=== PATIENT | female | born 1955 | race Caucasian/White ===

== ENCOUNTER 2017-04-01 05:45 | Observation (INO) | payer MEDICARE, OTHER ==
[~2017-04-01] VITALS: Ht 165.1 cm; Wt 58.6 kg
[2017-04-01] VITALS (12 sets, daily range): BP systolic 120–172; BP diastolic 67–93; PULSE 74–107; RESP 18–26; TEMP 97.6–98.3; O2SAT 90–99
[~2017-04-01 05:45] MED LIST: IBUP-232 PO
[2017-04-01] MEDS ORDERED: methylPREDNISolone SOD SUCC 125 MG/2 ML VIAL IV PUSH ONE ×2 (06:00→06:45)
[2017-04-01] MEDS ORDERED: SODIUM CHLORIDE 0.9% FLUSH 10 ML FLUSH IVF PRN (06:00)
--- NOTE | 2017-04-01 06:05 | PD ---
HPI Chief Complaint: shortness of breath Time Seen by Provider: 05:56 Travel History International Travel<30 days: No Contact w/Intl Traveler<30days: No Traveled to known affect area: No History of Present Illness HPI 61-year-old female presents to the emergency department by private transportation the care of family for evaluation of shortness of breath. Symptoms are worsened over the past couple days. Patient's had to sleep upright with worsening symptoms this morning. Patient has had cough productive of yellow sputum. Patient does have history of tobacco use. Patient denies fever or chills. No report of hemoptysis. Patient denies pleuritic chest pain. Patient does not report any lower extremity pain or swelling. No report of long distance travel protracted bedrest or surgical procedure. Patient does have history of hepatitis C does not report history of COPD emphysema CHF hypertension dyslipidemia diabetes or CAD. Patient states she was seen a partially one month ago and diagnosed with colitis and was treated with Cipro and Flagyl is currently not taking any antibiotics. Patient does not report exacerbating or alleviating factors. 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 ) Neurologic: No Psychiatric: Yes Reproductive: No Respiratory: No Sickle Cell Disease: No Thyroid Disease: No Menopausal: Yes Tubal Ligation: Yes Past Surgical History Abdominal Surgery: Yes (LIVER BX) Gynecologic Surgery: Yes (FOR CERVICAL CA, BONE BIOPSY, TUBAL ) Social History Alcohol Use: Yes (Socially) Tobacco Use: Yes (1/2 PPD) Substance Use: No Allergies-Medications (Allergen,Severity, Reaction): Coded Allergies: penicillin G (Verified Allergy, Intermediate, Rash, 04/01/17) tramadol (Unverified Allergy, Intermediate, VOMITING, 04/01/17) Patient states that she does not have an allergy to this medication Reported Meds & Prescriptions Reported Meds & Active Scripts Active Motrin (Ibuprofen) 600 Mg Tab 600 Mg PO TID Review of Systems Except as stated in HPI: all other systems reviewed are Neg General / Constitutional: No: Fever, Chills HENT: Positive: Congestion Cardiovascular: No: Chest Pain or Discomfort, Diaphoresis Respiratory: Positive: Cough, Shortness of Breath, Wheezing Gastrointestinal: No: Nausea, Vomiting, Diarrhea, Abdominal Pain Genitourinary: No: Flank Pain Musculoskeletal: No: Myalgias, Arthralgias, Edema, Pain Skin: No Rash Neurologic: No: Weakness Psychiatric: No: Anxiety Endocrine: No: Heat Intolerance Hematologic/Lymphatic: No: Easy Bruising Physical Exam Narrative GENERAL: Well-developed well-nourished thin female in no acute distress moderate respiratory distress room air O2 saturation upon arrival to ED stretcher 90% SKIN: Warm and dry. HEAD: Normocephalic. EYES: No scleral icterus. No injection or drainage. NECK: Supple, trachea midline. No JVD or lymphadenopathy. CARDIOVASCULAR: Regular rate and rhythm without murmurs, gallops, or rubs. RESPIRATORY: Breath sounds equal bilaterally bilaterally diminished with expiratory wheeze. No accessory muscle use. GASTROINTESTINAL: Abdomen soft, non-tender, nondistended. MUSCULOSKELETAL: No cyanosis, or edema. BACK: Nontender without obvious deformity. No CVA tenderness. Data Data Last Documented VS Vital Signs Date Time Temp Pulse Resp B/P (MAP) Pulse Ox O2 Delivery O2 Flow Rate FiO2 04/01/17 06:35 94 2.00 04/01/17 06:32 20 04/01/17 06:17 Nasal Cannula 04/01/17 05:50 98.3 74 152/78 (102) Orders Orders Complete Blood Count With Diff (04/01/17 05:56) Comprehensive Metabolic Panel (04/01/17 05:56) B-Type Natriuretic Peptide (04/01/17 05:56) Act Partial Throm Time (Ptt) (04/01/17 05:56) Prothrombin Time / Inr (Pt) (04/01/17 05:56) Magnesium (Mg) (04/01/17 05:56) Ckmb (Isoenzyme) Profile (04/01/17 05:56) Troponin I (04/01/17 05:56) Iv Access Insert/Monitor (04/01/17 05:56) Electrocardiogram (04/01/17 05:56) Ecg Monitoring (04/01/17 05:56) Oximetry (04/01/17 05:56) Oxygen Administration (04/01/17 05:56) Chest, Single Ap (04/01/17 05:56) Sodium Chloride 0.9% Flush (Ns Flush) (04/01/17 06:00) Methylprednisolone So Succ Inj (Solumedr (04/01/17 06:00) Albuterol-Ipratropium Neb (Duoneb Neb) (04/01/17 06:00) Blood Culture (04/01/17 05:56) Lactic Acid (04/01/17 05:56) Methylprednisolone So Succ Inj (Solumedr (04/01/17 06:45) Labs Laboratory Tests Test 04/01/17 06:04 White Blood Count 5.1 TH/MM3 Red Blood Count 4.08 MIL/MM3 Hemoglobin 13.9 GM/DL Hematocrit 40.4 % Mean Corpuscular Volume 98.9 FL Mean Corpuscular Hemoglobin 34.0 PG Mean Corpuscular Hemoglobin Concent 34.3 % Red Cell Distribution Width 13.6 % Platelet Count 51 TH/MM3 Mean Platelet Volume 8.6 FL Neutrophils (%) (Auto) 33.5 % Lymphocytes (%) (Auto) 42.3 % Monocytes (%) (Auto) 7.5 % Eosinophils (%) (Auto) 15.5 % Basophils (%) (Auto) 1.2 % Neutrophils # (Auto) 1.7 TH/MM3 Lymphocytes # (Auto) 2.1 TH/MM3 Monocytes # (Auto) 0.4 TH/MM3 Eosinophils # (Auto) 0.8 TH/MM3 Basophils # (Auto) 0.1 TH/MM3 CBC Comment AUTO DIFF Differential Comment AUTO DIFF CONFIRMED Platelet Estimate LOW Platelet Morphology Comment NORMAL Prothrombin Time 14.0 SEC Prothromb Time International Ratio 1.3 RATIO Activated Partial Thromboplast Time 28.0 SEC Blood Urea Nitrogen 8 MG/DL Creatinine 0.76 MG/DL Random Glucose 128 MG/DL Total Protein 8.3 GM/DL Albumin 3.9 GM/DL Calcium Level 8.8 MG/DL Magnesium Level 1.7 MG/DL Alkaline Phosphatase 152 U/L Aspartate Amino Transf (AST/SGOT) 185 U/L Alanine Aminotransferase (ALT/SGPT) 189 U/L Total Bilirubin 1.2 MG/DL Sodium Level 139 MEQ/L Potassium Level 3.4 MEQ/L Chloride Level 103 MEQ/L Carbon Dioxide Level 27.5 MEQ/L Anion Gap 9 MEQ/L Estimat Glomerular Filtration Rate 77 ML/MIN Lactic Acid Level 1.4 mmol/L Total Creatine Kinase 49 U/L Troponin I LESS THAN 0.02 NG/ML B-Type Natriuretic Peptide 26 PG/ML MDM Medical Decision Making Medical Screen Exam Complete: Yes Emergency Medical Condition: Yes Medical Record Reviewed: Yes Interpretation(s) EKG: Normal sinus rhythm rate [address] elevation or injury pattern or ectopy noted however artifact is present at baseline ck: 49, not elevated; BNP: 26, not elevated; troponin I: less than 0.02, not elevated Last Impressions Chest X-Ray 04/01/17 0556 Signed Impressions: Service Date/Time: Saturday, April 01, 2017 06:14 - CONCLUSION: No acute cardiopulmonary disease demonstrated. Ayush Cantrell MD CBC & BMP Diagram 04/01/17 06:04 Total Protein 8.3 H, Albumin 3.9, Calcium Level 8.8, Magnesium Level 1.7, Alkaline Phosphatase 152 H, Aspartate Amino Transf (AST/SGOT) 185 H, Alanine Aminotransferase (ALT/SGPT) 189 H, Total Bilirubin 1.2 H Vital Signs Date Time Temp Pulse Resp B/P (MAP) Pulse Ox O2 Delivery O2 Flow Rate FiO2 04/01/17 06:35 94 2.00 04/01/17 06:32 20 04/01/17 06:17 94 Nasal Cannula 2.00 04/01/17 06:07 96 Nasal Cannula 3.00 04/01/17 05:50 98.3 74 20 152/78 (102) 90 Differential Diagnosis COPD, emphysema, Pneumonia, PE, CHF, anemia, ACS Narrative Course Patient placed on cardiac monitors supplemental oxygen 2 L per minute nasal cannula and DuoNeb updrafts 3 ordered along with blood cultures and lactic acid Lung sounds improved after DuoNeb updrafts Patient has received Solu-Medrol 125 mg IV Chest x-ray reveals no lobar infiltrate effusion or vascular congestion or pneumothorax CBC is automated differential remarkable for 15.5% eosinophilia otherwise eyes are grossly normal range chemistries are grossly within normal limits except for elevated LFTs with history of hepatitis C and cardiac enzymes are found to be in normal range Patient taken off of supplemental oxygen and placed on room air for reassessment It is now 7:05 AM; with exertion patient desaturates to 89% on ra and becomes symptomatic ---will admit to OBS for updrafts/steroids and arrange for outpatient nebulizer bronchodilator therapy and steroids Physician Communication Physician Communication [facility] [place] obs Diagnosis Primary Impression: COPD with exacerbation Additional Impression: Eosinophilia Admitting Information Admitting Physician Requests: Observation Chaya Conner MD Apr 01, 2017 06:05
[2017-04-01] MEDS: RESP: ALBUTEROL 2.5 MG/IPRATROPIUM 0.5 MG NEB (SCH) INH ×5 (06:08→20:54)
[2017-04-01 06:23] LABS: AUTOMATED NEUTROPHIL # 1.7 TH/MM3 (1.8-7.7); BASOPHIL # 0.1 TH/MM3 (0-0.2); BASOPHIL % 1.2 % (0.0-2.0); EOSINOPHIL # 0.8 TH/MM3 (0-0.4); EOSINOPHIL % 15.5 % (0.0-4.0); HEMATOCRIT 40.4 % (35.0-46.0); LYMPH % 42.3 % (9.0-44.0); LYMPHOCYTE # 2.1 TH/MM3 (1.0-4.8); MEAN CELL VOLUME 98.9 FL (80.0-100.0); MEAN CORPUSCULAR HGB CONC 34.3 % (32.0-36.0); MONO % 7.5 % (0.0-8.0); NEUT % 33.5 % (16.0-70.0); PLATELET COUNT 51 TH/MM3 (150-450); RED BLOOD COUNT 4.08 MIL/MM3 (4.00-5.30); RED CELL DISTRIBUTION WIDTH 13.6 % (11.6-17.2); WHITE BLOOD COUNT 5.1 TH/MM3 (4.0-11.0)
[2017-04-01 06:24] LABS: HEMO FLAGS AUTO DIFF
--- NOTE | 2017-04-01 06:25 | RADRPT ---
EXAM DATE/TIME: 04/01/2017 06:14 [place] COMPARISON: No previous studies available for comparison. INDICATIONS : Shortness of breath for 2 days MEDICAL HISTORY : None. SURGICAL HISTORY : None. ENCOUNTER: Initial ACUITY: 2 days PAIN SCORE: 0/10 LOCATION: Bilateral chest FINDINGS: A single view of the chest demonstrates the lungs to be symmetrically aerated without evidence of mas s, infiltrate or effusion. The cardiomediastinal contours are unremarkable. Osseous structures are intact. CONCLUSION: No acute cardiopulmonary disease demonstrated. Ayush Cantrell MD on April 01, 2017 at 6:23 Board Certified Radiologist. This report was verified electronically.
[2017-04-01 06:32] LABS: CHLORIDE 103 MEQ/L (98-107); POTASSIUM 3.4 MEQ/L (3.5-5.1); SODIUM (NA) 139 MEQ/L (136-145)
[2017-04-01 06:36] LABS: ANION GAP 9 MEQ/L (5-15); BICARBONATE 27.5 MEQ/L (21.0-32.0); BLOOD UREA NITROGEN 8 MG/DL (7-18); MAGNESIUM 1.7 MG/DL (1.5-2.5)
[2017-04-01 06:37] LABS: INTERNATIONAL NORMALIZED RATIO 1.3 RATIO
[2017-04-01 06:39] LABS: ALT (GPT) 189 U/L (10-53); AST (GOT) 185 U/L (15-37); GLOMERULAR FILTRATION RATE 77 ML/MIN (>89)
[2017-04-01 06:40] LABS: TOTAL BILIRUBIN ADULT 1.2 MG/DL (0.2-1.0)
[2017-04-01 06:42] LABS: ALKALINE PHOSPHATASE 152 U/L (45-117)
[2017-04-01 06:54] LABS: PLATELET ESTIMATE SMEAR LOW (NORMAL); PLATELET MORPHOLOGY NORMAL (NORMAL); SCAN/DIFF AUTO DIFF CONFIRMED
[2017-04-01 07:02] LABS: CREATINE KINASE 49 U/L (26-192)
[2017-04-01] MEDS ORDERED: SODIUM CHLORIDE 0.9% FLUSH 10 ML FLUSH IV FLUSH PRN (08:00)
[2017-04-01] MEDS ORDERED: methylPREDNISolone SOD SUCC 125 MG/2 ML VIAL IV PUSH SCH (08:00)
[2017-04-01] MEDS ORDERED: RESP: ALBUTEROL 2.5 MG/IPRATROPIUM 0.5 MG NEB (PRN) NEB (08:30)
[2017-04-01] MEDS: LEVOFLOXACIN 750 MG PREMIX INJ 150 ML IV SCH (08:55)
[2017-04-01] MEDS: SODIUM CHLORIDE 0.9% FLUSH 10 ML FLUSH IV FLUSH SCH ×2 (09:00→20:19)
[2017-04-01] MEDS: HEPARIN SODIUM - SQ 10,000 UNITS/ML VIAL SQ SCH ×2 (09:00→20:18)
--- NOTE | 2017-04-01 11:25 | HHI.HP ---
[facility] Primary Care Physician Admission Diagnosis exac copd/emphysema; eosinophilia Diagnoses: (1) COPD with exacerbation Diagnosis: Principal (2) Hypoxia Diagnosis: Principal Chief Complaint: Shortness of breath Travel History International Travel<30 Days: No Contact w/Intl Traveler <30 Da: No Traveled to Known Affected Are: No History of Present Illness Written by Sánchez Mayers, acting as scribe for Dr. Vasquez on 04/01/17 at 11:18. 61-year-old female with known history of hepatitis C, chronic tobacco use, history of cervical cancer who presented to the hospital because of shortness of breath and dyspnea. Patient states her last 2 days she has been having worsening shortness of breath, dyspnea. States that the difficulty getting air in and out. It been progressively getting worse over the last couple days so she had her son bring her to the hospital for evaluation. She denies any fever, nausea, vomiting, chest pain, lightheadedness, dizziness. Patient states that is worse whenever she lays down or with movement. She has started with a cough on Tuesday with phlegm production. Patient does continue to smoke cigarettes on a daily basis. However because she cannot breathe today she threw her cigarettes away and states that she is now going to quit smoking. Patient had workup done emergency department with improvement of her respiratory status. However patient was found to have hypoxemia with O2 sats 89 %. Because of those reasons is recommended by the ER physician that patient be observed for further evaluation and management. Review of Systems Respiratory: COMPLAINS OF: Cough, Sputum production, Shortness of breath Cardiovascular: COMPLAINS OF: Dyspnea on Exertion Except as stated in HPI: all other systems reviewed are Neg Past Family Social History Past Medical History Hepatitis C from tattoo, received treatment for 6 months History cervical cancer Degenerative disc disease of her back Depression Past Surgical History Liver biopsy Cervical biopsy Tubal ligation Reported Medications Reported Meds & Active Scripts Active Motrin (Ibuprofen) 600 Mg Tab 600 Mg PO TID Allergies: Coded Allergies: penicillin G (Verified Allergy, Intermediate, Rash, 04/01/17) tramadol (Unverified Allergy, Intermediate, VOMITING, 04/01/17) Patient states that she does not have an allergy to this medication Family History Reviewed and unremarkable Social History Patient states that she quit smoking yesterday, patient has been smoking since she was in her 20s. She does drink alcohol occasionally. Denies any illicit drugs. Physical Exam Vital Signs Vital Signs Date Time Temp Pulse Resp B/P (MAP) Pulse Ox O2 Delivery O2 Flow Rate FiO2 04/01/17 11:03 04/01/17 10:22 93 04/01/17 09:53 98 22 134/90 (105) 95 Nasal Cannula 2.00 04/01/17 08:50 95 Nasal Cannula 2.00 04/01/17 07:37 98 26 99 Nasal Cannula 2.00 04/01/17 07:36 98.1 98 26 120/67 (84) 99 Nasal Cannula 2.00 04/01/17 06:35 94 2.00 04/01/17 06:32 20 04/01/17 06:17 94 Nasal Cannula 2.00 04/01/17 06:07 96 Nasal Cannula 3.00 04/01/17 05:50 98.3 74 20 152/78 (102) 90 Physical Exam GENERAL: Well-developed, well-nourished, in no acute distress. alert and orientated HEENT: Head is normocephalic without any lesions or masses noted. Facial features are symmetric. Eyes: Extraocular muscles are intact. Conjunctivae were clear. Oropharyngeal: Pharynx without any erythema edema. Tongue is midline without deviation. Buccal mucosa is moist without any masses or lesions NECK: Supple without any masses. Trachea midline no deviation. No JVD, no bruits are appreciated CARDIAC: Regular rhythm, regular rate. S1/S2 are heard. No murmurs gallops or rubs. LUNGS: Diminished breath sounds noted bilaterally in the bases. Mild expiratory wheeze. No Rhonchi or rales. No use of accessory muscles on inspiration or expiration. ABDOMEN: Soft, nontender. Nondistended. Bowel sounds heard in all 4 quadrants. No organomegaly or masses. Negative rebound, negative guarding EXTREMITIES: No edema, pulses are equal bilaterally. No cyanosis or clubbing NEUROLOGY: No slurred speech, no facial droop, no tremors noted Psychiatry: Mood and affect appropriate Laboratory Laboratory Tests Test 04/01/17 06:04 White Blood Count 5.1 Red Blood Count 4.08 Hemoglobin 13.9 Hematocrit 40.4 Mean Corpuscular Volume 98.9 Mean Corpuscular Hemoglobin 34.0 Mean Corpuscular Hemoglobin Concent 34.3 Red Cell Distribution Width 13.6 Platelet Count 51 Mean Platelet Volume 8.6 Neutrophils (%) (Auto) 33.5 Lymphocytes (%) (Auto) 42.3 Monocytes (%) (Auto) 7.5 Eosinophils (%) (Auto) 15.5 Basophils (%) (Auto) 1.2 Neutrophils # (Auto) 1.7 Lymphocytes # (Auto) 2.1 Monocytes # (Auto) 0.4 Eosinophils # (Auto) 0.8 Basophils # (Auto) 0.1 CBC Comment AUTO DIFF Differential Comment AUTO DIFF CONFIRMED Platelet Estimate LOW Platelet Morphology Comment NORMAL Prothrombin Time 14.0 Prothromb Time International Ratio 1.3 Activated Partial Thromboplast Time 28.0 Blood Urea Nitrogen 8 Creatinine 0.76 Random Glucose 128 Total Protein 8.3 Albumin 3.9 Calcium Level 8.8 Magnesium Level 1.7 Alkaline Phosphatase 152 Aspartate Amino Transf (AST/SGOT) 185 Alanine Aminotransferase (ALT/SGPT) 189 Total Bilirubin 1.2 Sodium Level 139 Potassium Level 3.4 Chloride Level 103 Carbon Dioxide Level 27.5 Anion Gap 9 Estimat Glomerular Filtration Rate 77 Lactic Acid Level 1.4 Total Creatine Kinase 49 Troponin I LESS THAN 0.02 B-Type Natriuretic Peptide 26 Date/Time Source Procedure Growth Status 04/01/17 06:10 Blood Peripheral Aerobic Blood Culture Pending Received 04/01/17 06:10 Blood Peripheral Anaerobic Blood Culture Pending Received 04/01/17 08:05 Nasal Washing Influenza Types A,B Antigen ([facility]) - Final NEGATIVE FOR FLU A AND B ANTIGEN.... Complete Result Diagram: 04/01/17 0604 04/01/1704 Imaging Last Impressions Chest X-Ray 04/01/17 0556 Signed Impressions: Service Date/Time: Saturday, April 01, 2017 06:14 - CONCLUSION: No acute cardiopulmonary disease demonstrated. MD Kianna Crandall VTE Risk Assessment Kianna VTE Risk Assessment: Mod/High Risk (score >= 2) Caprini Risk Assessment Model Point Value = 1 Point Value = 2 Point Value = 3 Point Value = 5 Age 41-60 Minor surgery BMI > 25 kg/m2 Swollen legs Varicose veins or History of unexplained or recurrent spontaneous Oral contraceptives or hormone replacement Sepsis (< 1 month) Serious lung disease, including pneumonia (< 1 month) Abnormal pulmonary function Acute myocardial infarction Congestive heart failure (< 1 month) History of inflammatory bowel disease Medical patient at bed rest Age 61-74 Arthroscopic surgery Major open surgery (> 45 min) Laparoscopic surgery (> 45 min) Malignancy Confined to bed (> 72 hours) Immobilizing plaster cast Central venous access Age >= 75 History of VTE Family history of VTE Factor V Leiden Prothrombin 12024K Lupus anticoagulant Anticardiolipin antibodies Elevated serum homocysteine Heparin-induced thrombocytopenia Other congenital or acquired thrombophilia Stroke (< 1 month) Elective arthroplasty Hip, pelvis, or leg fracture Acute spinal cord injury (< 1 month) Prophylaxis Regimen Total Risk Factor Score Risk Level Prophylaxis Regimen 0-1 Low Early ambulation 2 Moderate Order ONE of the following: *Sequential Compression Device (SCD) *Heparin 5000 units SQ BID 3-4 Higher Order ONE of the following medications: *Heparin 5000 units SQ TID *Enoxaparin/Lovenox 40 mg SQ daily (WT < 150 kg, CrCl > 30 mL/min) *Enoxaparin/Lovenox 30 mg SQ daily (WT < 150 kg, CrCl > 10-29 mL/min) *Enoxaparin/Lovenox 30 mg SQ BID (WT < 150 kg, CrCl > 30 mL/min) AND/OR *Sequential Compression Device (SCD) 5 or more Highest Order ONE of the following medications: *Heparin 5000 units SQ TID (Preferred with Epidurals) *Enoxaparin/Lovenox 40 mg SQ daily (WT < 150 kg, CrCl > 30 mL/min) *Enoxaparin/Lovenox 30 mg SQ daily (WT < 150 kg, CrCl > 10-29 mL/min) *Enoxaparin/Lovenox 30 mg SQ BID (WT < 150 kg, CrCl > 30 mL/min) AND *Sequential Compression Device (SCD) Assessment and Plan Assessment and Plan Chronic pulmonary disease with hypoxia in a chronic smoking patient -Continue O2 supplementation maintain O2 sats greater than 92% -Start Levaquin 750 mg daily -Solu-Medrol 125 mg every 6 hours -Duo nebs every 6 hours and every 2 hours as needed -Patient counseled on smoking cessation -Patient will need outpatient follow-up with primary medical doctor/ surgery specialist for pulmonary function tests -If patient does not respond to treatment, may need home oxygen walk study Elevated liver enzymes in a patient with known history of hepatitis C -Patient has undergone treatment for hepatitis C in the past -Monitor liver enzymes DVT prevention -Subcutaneous heparin This note was transcribed by jerod Mayers. IStef, personally performed the history, physical exam, and medical decision making; and confirmed the accuracy of information in the transcribed note. Authenticated by Stef Vasquez on 04/01/17 at 1655. All orders entered by Clive Mayers were at my discretion Sánchez Mayers Apr 01, 2017 11:25 Stef Vasquez MD Apr 03, 2017 18:52
[2017-04-01] MEDS: methylPREDNISolone SOD SUCC 125 MG/2 ML VIAL IV PUSH SCH ×2 (12:52→23:51)
[2017-04-01] MEDS ORDERED: ONDANSETRON HCL 4 MG/2 ML VIAL IVP PRN (14:30)
[2017-04-01] MEDS ORDERED: BISACODYL 10 MG SUPP RECTAL PRN (14:30)
[2017-04-01] MEDS ORDERED: LACTULOSE SYRUP 20 GM/30 ML CUP PO PRN (14:30)
[2017-04-01] MEDS ORDERED: SENNOSIDES 8.6 MG TAB PO PRN (14:30)
[2017-04-01] MEDS ORDERED: TEMAZEPAM 15 MG CAP PO PRN (14:30)
[2017-04-01] MEDS ORDERED: MAGNESIUM HYDROXIDE SUSP 30 ML CUP PO PRN (14:30)
[2017-04-01] MEDS ORDERED: NALOXONE HCL 0.4 MG/ML AMP IV PUSH PRN (14:30)
[2017-04-01] MEDS: IBUPROFEN 600 MG TAB PO PRN ×2 (14:46→23:52)
--- NOTE | 2017-04-01 19:20 | EKG ---
Date Performed: 04/01/2017 Time Performed: 06:24:29 PTAGE: 61 years EKG: Sinus rhythm POSSIBLE LEFT ATRIAL ENLARGEMENT BASELINE ARTIFACT BORDERLINE ECG PREVIOUS TRACING : 09/12/2013 13.49 Compared to prior tracing no significant change DOCTOR: Scott Staley Interpretating Date/Time 04/01/2017 19:20:09
[2017-04-01] MEDS: DOCUSATE SODIUM 50 MG/SENNA 8.6 MG TAB PO SCH (20:19)
[2017-04-02] VITALS: BP 157/93; PULSE 85; RESP 18; TEMP 97.3; O2SAT 95
[2017-04-02] MEDS: IBUPROFEN 600 MG TAB PO PRN (06:55)
[2017-04-02 07:05] LABS: AUTOMATED NEUTROPHIL # 8.1 TH/MM3 (1.8-7.7); BASOPHIL % 0.5 % (0.0-2.0); HEMATOCRIT 36.8 % (35.0-46.0); LYMPH % 13.9 % (9.0-44.0); LYMPHOCYTE # 1.4 TH/MM3 (1.0-4.8); MEAN CELL VOLUME 99.8 FL (80.0-100.0); MEAN CORPUSCULAR HEMOGLOBIN 33.7 PG (27.0-34.0); MEAN CORPUSCULAR HGB CONC 33.8 % (32.0-36.0); MONO % 2.6 % (0.0-8.0); PLATELET COUNT 51 TH/MM3 (150-450); RED BLOOD COUNT 3.69 MIL/MM3 (4.00-5.30); RED CELL DISTRIBUTION WIDTH 14.1 % (11.6-17.2); WHITE BLOOD COUNT 9.8 TH/MM3 (4.0-11.0)
[2017-04-02 07:16] LABS: HEMO FLAGS AUTO DIFF
[2017-04-02 07:26] LABS: CHLORIDE 105 MEQ/L (98-107); POTASSIUM 3.9 MEQ/L (3.5-5.1); SODIUM (NA) 138 MEQ/L (136-145)
[2017-04-02 07:30] LABS: ANION GAP 7 MEQ/L (5-15); BICARBONATE 26.1 MEQ/L (21.0-32.0); BLOOD UREA NITROGEN 10 MG/DL (7-18)
[2017-04-02 07:33] LABS: ALT (GPT) 129 U/L (10-53); AST (GOT) 80 U/L (15-37); GLOMERULAR FILTRATION RATE 90 ML/MIN (>89)
[2017-04-02 07:36] LABS: ALKALINE PHOSPHATASE 124 U/L (45-117)
[2017-04-02] MEDS: RESP: ALBUTEROL 2.5 MG/IPRATROPIUM 0.5 MG NEB (SCH) INH (07:47)
[2017-04-02 07:53] VITALS: O2SAT 98
[2017-04-02 07:53] LABS: SCAN/DIFF AUTO DIFF CONFIRMED
[2017-04-02 08:00] VITALS: BP 158/90; PULSE 92; RESP 17; TEMP 98.1; O2SAT 94
[2017-04-02] MEDS ORDERED: PNEUMOCOCCAL POLYVALENT INJ 25 MCG/0.5 ML SYR IM ONE (10:00)
[2017-04-02] MEDS ORDERED: INFLUENZA VIRUS VACCINE (QUADRIVALENT) 0.5 ML SYR IM ONE (10:00)
[2017-04-02] MEDS: LEVOFLOXACIN 750 MG PREMIX INJ 150 ML IV SCH (10:45)
[2017-04-02] MEDS: DOCUSATE SODIUM 50 MG/SENNA 8.6 MG TAB PO SCH (10:45)
[2017-04-02] MEDS: methylPREDNISolone SOD SUCC 125 MG/2 ML VIAL IV PUSH SCH (10:45)
[2017-04-02] MEDS: SODIUM CHLORIDE 0.9% FLUSH 10 ML FLUSH IV FLUSH SCH (10:46)
[2017-04-02] MEDS: HEPARIN SODIUM - SQ 10,000 UNITS/ML VIAL SQ SCH (10:46)
[2017-04-02] MEDS ORDERED: PRED10PA PO (10:55)
[2017-04-02] MEDS ORDERED: VENTAER INH (10:55)
[2017-04-02] MEDS ORDERED: FLUT1INH INH (10:55)
--- NOTE | 2017-04-02 10:57 | HHI.DCPOC ---
Discharge Care Plan Diagnosis: (1) COPD with exacerbation (2) Hypoxia Goals to Promote Your Health * To prevent worsening of your condition and complications * To maintain your health at the optimal level STOP SMOKING Directions to Meet Your Goals Take your medications as prescribed Follow your dietary instruction Follow activity as directed Keep your appointments as scheduled Take your immunizations and boosters as scheduled If your symptoms worsen call your PCP, if no PCP go to Urgent Care Center or Emergency Room Smoking is Dangerous to Your Health. Avoid second hand smoke Call the 24-hour hour crisis hotline for domestic abuse at Stef Vasquez MD Apr 02, 2017 10:57
--- NOTE | 2017-04-02 10:58 | HHI.DS ---
Discharge Summary Admission Date Apr 01, 2017 at 07:31 Discharge Date: Apr 02, 2017 Admitting Diagnosis exac copd/emphysema; eosinophilia (1) COPD with exacerbation ICD Code: J44.1 - Chronic obstructive pulmonary disease with (acute) exacerbation Diagnosis: Principal Status: Acute (2) Hypoxia ICD Code: R09.02 - Hypoxemia Diagnosis: Principal Status: Resolved Procedures none Brief History - From Admission Written by Sánchez Mayers, acting as scribe for Dr. Vasquez on 04/01/17 at 11:18. 61-year-old female with known history of hepatitis C, chronic tobacco use, history of cervical cancer who presented to the hospital because of shortness of breath and dyspnea. Patient states her last 2 days she has been having worsening shortness of breath, dyspnea. States that the difficulty getting air in and out. It been progressively getting worse over the last couple days so she had her son bring her to the hospital for evaluation. She denies any fever, nausea, vomiting, chest pain, lightheadedness, dizziness. Patient states that is worse whenever she lays down or with movement. She has started with a cough on Tuesday with phlegm production. Patient does continue to smoke cigarettes on a daily basis. However because she cannot breathe today she threw her cigarettes away and states that she is now going to quit smoking. Patient had workup done emergency department with improvement of her respiratory status. However patient was found to have hypoxemia with O2 sats 89 %. Because of those reasons is recommended by the ER physician that patient be observed for further evaluation and management. CBC/BMP: 04/02/17 0635 04/02/17 0635 Significant Findings Laboratory Tests Test 04/01/17 06:04 04/02/17 06:35 Platelet Count 51 TH/MM3 (150-450) 51 TH/MM3 (150-450) Eosinophils (%) (Auto) 15.5 % (0.0-4.0) Neutrophils # (Auto) 1.7 TH/MM3 (1.8-7.7) 8.1 TH/MM3 (1.8-7.7) Eosinophils # (Auto) 0.8 TH/MM3 (0-0.4) Platelet Estimate LOW (NORMAL) Prothrombin Time 14.0 SEC (9.8-11.6) Random Glucose 128 MG/DL (74-106) 150 MG/DL (74-106) Total Protein 8.3 GM/DL (6.4-8.2) Alkaline Phosphatase 152 U/L (45-117) 124 U/L (45-117) Aspartate Amino Transf (AST/SGOT) 185 U/L (15-37) 80 U/L (15-37) Alanine Aminotransferase (ALT/SGPT) 189 U/L (10-53) 129 U/L (10-53) Total Bilirubin 1.2 MG/DL (0.2-1.0) Potassium Level 3.4 MEQ/L (3.5-5.1) Estimat Glomerular Filtration Rate 77 ML/MIN (>89) Troponin I LESS THAN 0.02 NG/ML Red Blood Count 3.69 MIL/MM3 (4.00-5.30) Neutrophils (%) (Auto) 83.0 % (16.0-70.0) PE at Discharge Normal adequate breath sounds bilaterally, unlabored breathing, very faint expiratory wheezing Hospital Course Patient was started on IV steroids, her oxygenation and shortness of breath has improved. She was counseled on the importance of smoking cessation. Patient has met maximum benefit from hospitalization and is clinically stable for discharge. Pt Condition on Discharge: Stable Discharge Disposition: Discharge Home Discharge Time: <= 30 minutes Discharge Instructions DIET: Follow Instructions for: Heart Healthy Diet Activities you can perform: Weight Bearing as Chas Follow up Referrals: PCP Follow-up - 1 Week New Medications: Albuterol 18 GM Inh (Ventolin Hfa 18 GM Inh) 90 Mcg/Act Aer 1 PUFF INH Q4H PRN for SHORTNESS OF BREATH, #1 INHALER 0 Refills Fluticasone-Vilanterol Inh (Breo Ellipta Inh) 100-25 Mcg/Act Inh 1 PUFF INH DAILY for bronchitis, #1 INHALER 0 Refills Use daily at the same time. Prednisone (21) 10 mg tab Dose Pack (Prednisone (21) 10 mg tab Dose Pack) 10 Mg Pack 10 MG PO DIRECTED for Inflammation, #1 DSPK 0 Refills Discontinued Medications: Ibuprofen (Motrin) 600 Mg Tab 600 MG PO TID, #45 TAB Stef Vasquez MD Apr 02, 2017 10:58
[2017-04-02] MEDS ORDERED: methylPREDNISolone SOD SUCC 125 MG/2 ML VIAL IV PUSH SCH (21:00)
== END 2017-04-02 11:55 | disposition home or self-care (01) ==
LOC: PHED 05:45 → PHEDA 07:31 → PH3B 10:59
PROVIDERS: ADMIT Hospitalist; ATTEND Hospitalist
DX: J44.1 Chronic obstructive pulmonary disease with (acute) exacerbation (principal); R09.02 Hypoxemia; D72.1 Eosinophilia; I10 Essential (primary) hypertension; B18.2 Chronic viral hepatitis C; R94.31 Abnormal electrocardiogram [ECG] [EKG]; F17.210 Nicotine dependence, cigarettes, uncomplicated; Z85.41 Personal history of malignant neoplasm of cervix uteri; Z92.21 Personal history of antineoplastic chemotherapy; Z23 Encounter for immunization
CPT/HCPCS: 71010; 80053; 82550; 83605; 83735; 83880; 84484; 85025; 85610; 85730; 87040; 87804; 90732; 93005; 94150; 94640; 94664; 96365; 96366; 96372; 96375; 96376; 97162; 99285; G0008; G0009; G0378; G8987; G8988; J1644; J1956; J2930; Q2038; 90471; 90686